=== PATIENT | female | born 1955 | race Caucasian/White ===

== ENCOUNTER 2017-07-23 09:06 | Inpatient (IN) | payer MEDICARE, OTHER ==
[~2017-07-23] VITALS: Ht 160 cm; Wt 89.2 kg
--- NOTE | ~2017-07-23 | DS ---
Unit #: [id number] #: [id number] Patient: TITA REID [id number] [address] [address] [id number] I MR#: [id number] NAME: TITA REID ROOM: 339 Age: 62 Sex: F Admission Date: 07/23/2017 : 1955 Discharge Date: Attending Physician: Delvis Soto M.D. Primary Care Physician: No Primary Care Physician DISCHARGE SUMMARY DISCHARGE DIAGNOSES 1. Acute hypoxic respiratory failure. 2. Chronic obstructive pulmonary disease with exacerbation. 3. Diabetes mellitus type 2, uncontrolled. 4. Hypertension, uncontrolled. 5. Hyperkalemia secondary to noncompliant with her diet and also could be from hyperglycemia. 6. Chronic back pain and leg pain. 7. Hyperlipidemia. 8. Gastroesophageal reflux disease. 9. Depression. CONSULTATION None. PROCEDURES None. LAB DATA Glucose 200, sodium 136, potassium 4.3, creatinine 0.9, WBC 11.4, hemoglobin 12.2, platelets 256. CT angio of chest shows no acute abnormality. Abnormal thickening of the esophagus. ALLERGIES Ibuprofen and shellfish. DISCHARGE MEDICATIONS 1. Albuterol aerosol, 1-2 puffs inhalation q.4-6 p.r.n. shortness of breath. 2. Symbicort 160 mcg, 2 puffs inhalation b.i.d. 3. Spiriva, 1 inhalation daily. 4. Neurontin 400 3x daily. 5. Prednisone tapering dose. 6. Neurontin 400 at bedtime. 7. Cymbalta 60 daily. 8. Remeron 45 daily. 9. Metformin 1000 p.o. b.i.d. 10. Pravachol 40 daily. 11. Inderal LA 10 mg p.o. b.i.d. 12. Lisinopril has been discontinued. 13. Lantus 40 units subcu at bedtime. 14. Oxycodone 10 mg 4x daily p.r.n. pain. Unit #: [id number] #: [id number] Patient: TITA REID 15. Prilosec 20 p.o. b.i.d. HOSPITALIZATION COURSE 62-year-old admitted because of fall and shortness of breath. 1. Acute hypoxic respiratory failure from COPD, currently wheezing better, able to ambulate okay. Patient was on IV Solu-Medrol and doxycycline. Patient will be discharged on albuterol, Spiriva, prednisone tapering dose. She completed her doxycycline course. 2. Hypertension, present on admission secondary to medications, Motrin, responded with fluids. 3. Frequent falls, currently ambulating okay, most likely from her medications, Neurontin and other pain medications which have been decreased in dosage. 4. Hyperkalemia, likely noncompliant with medications. No kidney issues. Patient lisinopril will be on hold. 5. Diabetes mellitus type 2 uncontrolled secondary to Solu-Medrol. Received insulin. Currently she was around 200. Continue with metformin and Lantus. 6. Chronic pain. Continue with narcotics but with a lower dose because of frequent falls. 7. Smoking, advised to quit. Discharge home. Patient will have ambulatory pulse ox checked. If sats less than 89%, will arrange home O2 15/06. Follow with PCP in one week time for esophageal thickening. She is on Prilosec. Discharge time taken is 32 minutes. Dictated by... Marjorie Wong M.D. JOE/manoj TD: 07/27/2017 11:11 JOB #: [id number] DISCHARGE SUMMARY Page 1 of 1 X Marjorie Wong MD DISCHARGE SUMMARY
--- NOTE | ~2017-07-23 | HP ---
Unit #: [id number] #: [id number] Patient: TITA REID [id number] [id number] [facility]. [place], [place] [address] [id number] E MR#: [id number] NAME: TITA REID ROOM: Age: 62 Sex: F Admission Date: 07/23/2017 : 1955 Attending Physician: Darwin Cruz D.O. Primary Care Physician: No Primary Care Physician HISTORY AND PHYSICAL CHIEF COMPLAINT Fell Thursday, hurt right knee. HISTORY OF PRESENT ILLNESS The patient is a 62-year-old female with past medical history of COPD, hypertension, hyperlipidemia, diabetes, chronic pain, GERD, depression, who presented to the emergency department for evaluation of the above. The patient states that she stepped in a "hole" and fell landing on her right leg on July 19, 2017. She has had right knee pain since that time. This morning, she was walking out of the bathroom and fell. She denies any fever. No cough or cold symptoms. She has been generally weak. She denies lightheadedness. No chest pain. She has had an intermittently productive cough. She denies any fever. No diarrhea or constipation. No vomiting. No urinary symptoms. In the emergency department, initial pulse was 84, blood pressure 129/67, oxygen saturation was 95% on room air. Blood pressure dropped to 86/62 during her course of evaluation in the emergency department. Imaging studies are negative including a chest x-ray. She did have an arterial blood gas that showed a pH of 7.293, pCO2 of 58.3, pO2 of 50 on room air. She was given Solu-Medrol 125 mg as well as 4 mg of morphine, 4 mg of Zofran, and a 1 L normal saline bolus. Of note, morphine was given at 10:35. Low blood pressure in the 80s was noted around 1:30. PAST MEDICAL HISTORY 1. Admission to [facility], March 19, 2016, for altered mental status, attributed to opiates and Neurontin. 2. COPD, not on home oxygen. 3. Diabetes. 4. Chronic back and leg pain, not in pain management. 5. Hypertension. 6. Hyperlipidemia. 7. GERD. 8. Depression. PAST SURGICAL HISTORY 1. Back surgery. 2. Appendectomy. 3. Cholecystectomy. 4. Total abdominal hysterectomy. 5. Right rotator cuff surgery. 6. EGD. Unit #: [id number] #: [id number] Patient: TITA REID SOCIAL HISTORY The patient lives with her . She smokes a pack of cigarettes daily. There is no alcohol or illicit drug use. She walks with a cane. FAMILY HISTORY Notable for her mother having diabetes. ALLERGIES Shellfish and ibuprofen. HOME MEDICATIONS 1. Spiriva inhaled daily. 2. Oxycodone 10/325 four times daily p.r.n. 3. Pravachol 40 mg at bedtime. 4. Neurontin 800 mg t.i.d. and 400 mg at bedtime. 5. Symbicort 160/4.5 two puffs inhaled twice daily. 6. Ventolin one to two puffs q.4-6 hours p.r.n. 7. Glucophage 1000 mg twice daily. 8. Inderal 10 mg twice daily. 9. Lantus 40 units at bedtime. 10. Duloxetine 60 mg daily. 11. Zestril 10 mg daily. 12. Remeron 45 mg at bedtime. 13. Prilosec 20 mg twice daily. REVIEW OF SYSTEMS A complete review of systems is negative except as indicated in the HPI. The patient denies any change in her medications. She does not routinely check blood sugars at home. DIAGNOSTIC STUDIES LABORATORY: Lactic acid is 2. Arterial blood gas shows pH of 7.293, pCO2 of 58.3, pO2 of 50 on room air. Urinalysis is negative. Basic metabolic panel notable for potassium of 5.2, chloride 96, glucose 186. Complete blood count notable for white blood cell count of 11.6. Troponin is less than 0.05. IMAGING: Chest x-ray is negative. Right tibia/fibula, femur, and knee x-rays show no fracture. CARDIOVASCULAR: EKG shows normal sinus rhythm with rate of 84 beats per minute. PHYSICAL EXAMINATION VITAL SIGNS: Temperature is 97.9, pulse 84, respirations 16, blood pressure 129/67. Blood pressure dropped as low as 86/62. Most recent blood pressure is 118/70. Oxygen saturation 95% on room air. GENERAL: The patient is a female who is awake and alert in no acute distress. HEENT: The head is atraumatic. Mucous membranes are moist. NECK: Supple. Trachea is midline. CARDIOVASCULAR: Regular rate and rhythm. LUNGS: Demonstrate inspiratory and expiratory wheezes. Breathing is not labored with conversation. ABDOMEN: Soft, nontender with bowel sounds present in all four quadrants. EXTREMITIES: The right lower extremity is tender to palpation in the knee area. There is no pedal edema. Unit #: [id number] #: [id number] Patient: TITA REID NEUROLOGIC: The patient is awake and alert. She follows commands. PSYCHIATRIC: Mood and affect are normal. The patient is cooperative. SKIN: Skin of examined areas is warm and dry. She does have a contusion on the right knee. ASSESSMENT The patient is a 62-year-old female with: 1. Acute respiratory failure, hypoxic. 2. Chronic obstructive pulmonary disease exacerbation: The patient received Solu-Medrol in the emergency department. 3. Hypotension that has responded to fluids, possibly secondary to morphine. 4. Frequent falls. 5. Hyperkalemia with potassium of 5.2. 6. Diabetes. 7. Chronic pain, maintained on narcotics. 8. Gastroesophageal reflux disease. 9. Depression. 10. Hyperlipidemia. 11. Tobacco abuse. PLAN 1. Admit to intermediate level. 2. Normal saline at 75 mL/hr. 3. Healthy heart consistent carb diet if passes bedside swallow. 4. Bedrest. 5. Fall precautions. 6. PT, OT to evaluate and treat. 7. Supplemental oxygen. 8. DuoNeb q.4 hours while awake and q.2 hours p.r.n. 9. Solu-Medrol 80 mg IV q.12 hours. 10. Mucinex 600 mg p.o. b.i.d. 11. Doxycycline 100 mg p.o. b.i.d. for possible acute bronchitis. 12. CT of the chest PE protocol. 13. Blood cultures x2. 14. Monitor blood pressure closely. 15. Hemoglobin A1c. 16. Low-dose sliding scale insulin with Accu-Cheks. 17. Serial cardiac enzymes. 18. Urine tox screen. 19. Repeat BMP later this evening to follow up hyperkalemia. 20. Repeat labs in the morning. 21. SCDs for DVT prophylaxis. 22. Additional workup and consultants based on above. Dictated by Brook Choudhary M.D. YEIMI/stevan TD: 07/23/2017 16:40 JOB #: [id number] Unit #: [id number] #: [id number] Patient: TITA REID HISTORY AND PHYSICAL Page 1 of 1 X Brook Choudhary MD X HISTORY AND PHYSICAL
--- NOTE | ~2017-07-23 | CR72 ---
[facility] A Service of [facility] RADIOLOGY TEXT RESULTS PATIENT: TITA REID LOCATION: [facility] 339-01 : 53 UNIT #: [id number] AGE: [address]: Delvis Soto MD SEX: F ORDER DR: [id number] [facility] [address] [facility] [place], [place] [address] [id number] E MR#: [id number] Acc #: [id number] NAME: TITA REID : 1955 SEX: F STUDY DATE/TIME: 07/23/2017 13:21 UNIT: [facility] ROOM: STUDY DESCRIPTION: CR Chest Single View Portable Attending Physician: Darwin Cruz D.O. Ordering Physician: Darwin Cruz D.O. Primary Care Physician: No Primary Care Physician MEDICAL IMAGING REPORT This report is preliminary unless electronic signature is present EXAM Chest x-ray, single-view, portable. HISTORY Low blood pressure today. History of shortness of breath, COPD and smoking. COMMENT Single frontal portable view of the chest timed 13:21, 07/23/2017, reviewed. COMPARISON Comparison is from 03/19/2016. FINDINGS There is normal cardiac silhouette size. There is calcified granuloma left lung laterally midportion. The lungs are otherwise clear. There is no congestive failure, pleural effusion or pneumothorax. IMPRESSION No active disease. Dictated by... Celina Dial M.D. THIS IS AN ELECTRONICALLY VERIFIED REPORT Celina Dial M.D. at 07/24/2017 8:23 AM DEVIN/radha TD: 07/23/2017 16:17 JOB #: [id number] [facility] A Service [facility] RADIOLOGY TEXT RESULTS PATIENT: TITA REID LOCATION: [facility] 339-01 : [birth year] UNIT #: [id number] AGE: [address]: Delvis Soto MD SEX: F ORDER DR: MEDICAL IMAGING REPORT Page 1 of 1 COPY
--- NOTE | ~2017-07-23 | CR173 ---
[facility] A Service of [facility] & [facility] RADIOLOGY TEXT RESULTS PATIENT: TITA REID LOCATION: [facility] 339-01 : 53 UNIT #: [id number] AGE: [address]: Delvis Soto MD SEX: F ORDER DR: [id number] [facility] [address] [place], [place] [address] [id number] E MR#: [id number] Acc #: [id number] NAME: TTIA REID : 1955 SEX: F STUDY DATE/TIME: 07/23/2017 10:27 UNIT: [facility] ROOM: STUDY DESCRIPTION: CR Knee 3 Views Rt Attending Physician: Darwin Cruz D.O. Ordering Physician: Darwin Cruz D.O. Primary Care Physician: Primary Care Physician No MEDICAL IMAGING REPORT This report is preliminary unless electronic signature is present EXAM Right knee series, 09/18/2017 HISTORY Trauma, fell twice. No previous injuries. Pain in right leg 1 week duration. FINDINGS AP, lateral and sunrise views of the right knee are presented. Diminished bony mineralization. No traumatic fracture or malalignment. Moderate to marked narrowing of all 3 joint space compartments most pronounced patellofemoral joint space compartment. Marginal osteophyte formations most pronounced at the patellofemoral joint space compartment. Small suprapatellar joint effusion. Chronic soft tissue calcification lateral aspect distal thigh. No acute traumatic appearing soft tissue abnormality. Dictated by... Lee Saini M.D. THIS IS AN ELECTRONICALLY VERIFIED REPORT Lee Saini M.D. at 07/24/2017 6:19 PM Rajni TD: 07/23/2017 13:18 JOB #: [id number] MEDICAL IMAGING REPORT Page 1 of 1 COPY
--- NOTE | ~2017-07-23 | CR107 ---
[facility] A Service of [facility] / [facility] RADIOLOGY TEXT RESULTS PATIENT: TITA REID LOCATION: [facility] : 53 UNIT #: [id number] AGE: [address]: Darwin Cruz DO SEX: F ORDER DR: [id number] [facility] [address] [place], [place] [address] [id number] E MR#: [id number] Acc #: [id number] NAME: TITA REID : 1955 SEX: F STUDY DATE/TIME: 07/23/2017 10:23 UNIT: [facility] ROOM: STUDY DESCRIPTION: CR Femur 2 Views Rt Attending Physician: Darwin Cruz D.O. Ordering Physician: Darwin Cruz D.O. Primary Care Physician: Primary Care Physician No MEDICAL IMAGING REPORT This report is preliminary unless electronic signature is present EXAM Right femur 2 views, 07/23/2017 10:23 hours COMPARISON 01/02/2013 HISTORY 62-year-old woman who has fallen twice in the past week. Right leg pain. FINDINGS AP and lateral views demonstrate no fracture of the femur. There is mild degenerative change at the hip and moderate degenerative change at the knee. There is a subtle area of periosteal thickening in the proximal tibial metaphysis, incompletely evaluated on this exam. IMPRESSION 1. No femur fracture is seen. Mild degenerative change at the right hip. Moderate to severe degenerative change at the knee. 2. There is question raised of periosteal thickening at the proximal tibial metaphysis incompletely evaluated on these films. Patient does have knee and tibia and fibula films pending today. Dictated by... Doreen Sagastume M.D. THIS IS AN ELECTRONICALLY VERIFIED REPORT Doreen Sagastume M.D. at 07/23/2017 12:52 PM Kim TD: 07/23/2017 11:50 JOB #: [id number] MEDICAL IMAGING REPORT [facility] A Service of [facility] RADIOLOGY TEXT RESULTS PATIENT: TITA REID [id number] 53 UNIT #: [id number] AGE: [address]: Darwin Cruz DO SEX: F ORDER DR: Page 1 of 1 COPY
--- NOTE | ~2017-07-23 | CT16 ---
[facility] A Service of [facility] RADIOLOGY TEXT RESULTS PATIENT: TITA REID LOCATION: [facility] 339-01 : 53 UNIT #: [id number] AGE: [address]: Delvis Soto MD SEX: F ORDER DR: [id number] [facility] [address] [facility] [place], [place] [address] [id number] I MR#: [id number] Acc #: [id number] NAME: TITA REID : 1955 SEX: F STUDY DATE/TIME: 07/23/2017 17:51 UNIT: [facility] PCU ROOM: [facility] STUDY DESCRIPTION: CT Angio Chest for PE Attending Physician: Brook Choudhary M.D. Ordering Physician: Brook Choudhary M.D. Primary Care Physician: Primary Care Physician No MEDICAL IMAGING REPORT This report is preliminary unless electronic signature is present EXAM CT angiography of the chest with IV contrast, PE protocol COMPARISON CT chest without IV contrast dated March 03, 2014 and AP chest dated July 23, 2017. INDICATION 62-year-old female with dyspnea today. Nonproductive cough and chest congestion for years. This CT exam was performed with one or more of the following radiation dose reduction techniques: automatic exposure control, adjustment of mA and/or kV according to patient size, and iterative reconstruction. FINDINGS Axial CT imaging of the chest was performed after IV administration of 100 mL Isovue-370. Coronal MIPs and sagittal reformats were constructed. Diffuse spondylosis of the thoracic spine with degenerative vacuum disc phenomenon seen at multiple levels. No acute fractures or suspicious osseous lesions. No adenopathy. Calcified granuloma in the left upper lobe as well as calcified AP window lymph nodes. Normal caliber of the thoracic aorta. There is cardiac pulsation artifact seen at the ascending aorta and main pulmonary artery. Top normal heart size. Multivessel left-sided coronary artery calcifications involving the left anterior descending, left main and circumflex coronary arteries. Airways are widely patent. No pneumothorax, pleural effusion or acute airspace disease. There is suspected internal debris within the esophagus but mucosal lesion cannot entirely be excluded. Streak artifact from contrast bolus in the superior vena cava limits evaluation of the right main pulmonary artery and its branches. No evidence of pulmonary embolus is seen on this exam. [facility]. [facility] A Service of [facility] / [facility] RADIOLOGY TEXT RESULTS PATIENT: TITA REID LOCATION: [facility] 339-01 : 53 UNIT #: [id number] AGE: [address]: Delvis Soto MD SEX: F ORDER DR: Prior cholecystectomy. Mild hepatomegaly. Apparent multifocal scarring of the kidneys versus persistent lobulation. IMPRESSION 1. No acute abnormality within the chest or imaged upper abdomen. 2. There may abnormal thickening of the esophagus versus asymmetric layering internal debris. Clinical correlation is recommended. One could consider direct visualization with endoscopy as an outpatient or outpatient esophagram. 3. Three-vessel coronary artery calcification including left main, anterior descending and circumflex coronary arteries, grossly stable from comparison of 2014. 4. No evidence of pulmonary embolus. 5. Hepatomegaly. Prior cholecystectomy. 6. Multifocal scarring versus persistent lobulation of the kidneys. Dictated by... John Fletcher M.D. THIS IS AN ELECTRONICALLY VERIFIED REPORT John Fletcher M.D. at 07/29/2017 10:06 AM [place] TD: 07/24/2017 01:37 JOB #: [id number] MEDICAL IMAGING REPORT Page 1 of 1 COPY
--- NOTE | ~2017-07-23 | EKG ---
PATIENT: TITA REID UNIT #: [id number] Ventricular Rate: 84 BPM Atrial Rate: 84 BPM P-R Interval: 198 ms QRS Duration: 88 ms Q-T Interval: 366 ms QTC Calculation(Bezet): 432 ms P [place]: 65 degrees Calculated R [place]: 45 degrees Calculated T [place]: 56 degrees Diagnosis Line: Normal sinus rhythm Diagnosis Line: Low voltage QRS Diagnosis Line: Borderline ECG Diagnosis Line: When compared with ECG of 19-MAR-2016 13:25, Diagnosis Line: No significant change was found Diagnosis Line: Confirmed by KAVEH BOSE MD ([id number]) on Diagnosis Line: 07/24/2017 4:42:03 PM INTERPRETING MD: DARRIAN
--- NOTE | ~2017-07-23 | CR253 ---
[facility] A Service of [facility] & [facility] RADIOLOGY TEXT RESULTS PATIENT: TITA REID LOCATION: [facility] 339-01 : 53 UNIT #: [id number] AGE: [address]: Delvis Soto MD SEX: F ORDER DR: [id number] [facility] [address] [place], [place] [address] [id number] E MR#: [id number] Acc #: [id number] NAME: TITA REID : 1955 SEX: F STUDY DATE/TIME: 07/23/2017 10:26 UNIT: [facility] ROOM: STUDY DESCRIPTION: CR Tibia and Fibula 2 Views Rt Attending Physician: Darwin Cruz D.O. Ordering Physician: Darwin Cruz D.O. Primary Care Physician: Primary Care Physician No MEDICAL IMAGING REPORT This report is preliminary unless electronic signature is present EXAM Tibia-fibula series 07/23/2017 HISTORY Trauma. Fell twice. Pain in right leg. No previous injuries. One week duration. FINDINGS AP and lateral radiographs of the right tibia and fibula are presented. Diminished bony mineralization. No traumatic fracture or malalignment is seen. Generalized narrowing of knee joint spaces. Chronic-appearing soft tissue calcification lateral aspect distal thigh. Mild degenerative change suggested in the ankle mortise joint. On the lateral view of the knee, there may be a very small effusion in the suprapatellar recess. There is no soft tissue defect, subcutaneous air or radiodense foreign body. Dictated by... Lee Saini M.D. THIS IS AN ELECTRONICALLY VERIFIED REPORT Lee Saini M.D. at 07/24/2017 6:19 PM KENYON/edson TD: 07/23/2017 12:47 JOB #: [id number] MEDICAL IMAGING REPORT Page 1 of 1 COPY
--- NOTE | ~2017-07-23 | HP ---
Unit #: [id number] #: [id number] Patient: TITA REID [id number] [address] [place], [place] [address] [id number] E MR#: [id number] NAME: TITA REID ROOM: Age: 62 Sex: F Admission Date: 07/23/2017 : 1955 Attending Physician: Darwin Cruz D.O. Primary Care Physician: No Primary Care Physician HISTORY AND PHYSICAL ADDENDUM REVIEW OF SYSTEMS Additional information under review of systems: The patient had an MRI/MRA of the head and neck within the past month ordered by her primary care physician as part of evaluation of chronic headaches. It was normal per the patient. I do not see any imaging studies in [employer] or on the [facility] system. Family is not sure where it was done. PLAN Additional item under plan: Will decrease the patient's Neurontin which could be contributing to falls. She is on 800 mg t.i.d. and 400 mg q.h.s. I have decreased the dosage. Dictated by Lulu Cooper/jaime TD: 07/23/2017 17:32 JOB #: [id number] HISTORY AND PHYSICAL Page 1 of 1 X Brook Choudhary MD HISTORY AND PHYSICAL
[~2017-07-23 09:06] MED LIST: ADVAIR 250-501 EAC1 IH; ADVAIR 2501 DISK W/D PO; ALBUTEROL17 GM INH; ANTIVERT PO; ASPIRIN PO; BACLOFEN10 MG PO; CELEXA PO; CYMBALTA30 MG PO; DARVOCET-N 1001 TAB PO; DIAZEPAM PO; DULOXETINE HCL60 MG PO; ECOTRIN81 M1 PO; ENDOCET 7.5-3251 TAB PO; FAMVIR500 MG PO; FLEXERIL10 MG PO; GLUCOPHAGE XR500 MG PO; GLUCOTROL PO; HYDROCHLOROTH12.5 M1 PO; LANTUS SOLOSTAR3 ML SQ; LANTUS100 U/ML SUBQ; LEVAQUIN PO; LEVAQUIN750 M1 PO; LISINOPRIL PO; LISINOPRIL10 MG PO; LYRICA PO; MACROBID100 MG DOB; MEDROL4 MG/DOSE- PO; METFORMIN PO; MIRALAX255 GM PO; MIRTAZAPINE45 M1 PO; NAPROSYN375 MG PO; NEURONTIN PO; NEURONTIN800 MG PO; NORCO 10/325 TA1 TAB PO; NORVASC2.5 MG PO; OMEPRAZOLE20 M1 PO; OXYCODON HCL-AP1 TA2 PO; OXYCODONE-ACET1 EACH PO; PERCOCET10 PO; PHENERGAN PO; PHENERGAN25 M1 PO; PRILOSEC PO; PROPRANOLOL HCL20 MG PO; PYRIDIUM100 MG PO; REMERON15 MG PO; TYLENOL #3 PO; TYLOX 5/500 CAP1 CAP PO; VENTOLIN HFA INH; ZOFRAN ODT4 MG PO; ZOLOFT PO; [UNRECOGNIZED DRUG - OTHER] PO; [UNRECOGNIZED DRUG - OTHER] PO
[2017-07-23 11:02] LABS: POC - CKMB 1.5 ng/mL (0.0-7.9); POC - TROPONIN <0.05 ng/mL (<=0.05)
[2017-07-23 11:05] LABS: BASOPHIL# 0.1 X10e3 (0-0.3); BASOPHIL% 0.9 % (0-2.5); EOSINOPHIL# 0.2 X10e3 (0-0.7); EOSINOPHIL% 2.1 % (0.0-7.0); HEMATOCRIT 40.4 % (35.0-45.0); LYMPHOCYTE# 2.5 X10e3 (1.0-3.5); MEAN CELL VOLUME 92.2 FL (83-96); MEAN CORPUSCULAR HEMOGLOBIN 29.7 PG (28-34); MEAN CORPUSCULAR HGB CONC 32.2 g/dL (30-36); MEAN PLATELET VOLUME 8.2 FL (6.5-11.5); MONOCYTE# 0.7 X10e3 (0-1.0); PLATELET COUNT 284 X10e3 (140-420); RED BLOOD COUNT 4.38 X10e (3.90-5.30); RED CELL DISTRIBUTION WIDTH 14.4 % (11.0-15.5); WHITE BLOOD COUNT 11.6 X10e3 (4.0-10.5)
[2017-07-23 11:06] LABS: DIFF IND NO
[2017-07-23 11:28] LABS: GLOM FILT RATE Estimated 59.9 mL/min (>60); POTASSIUM 5.2 mmol/L (3.5-5.1)
[2017-07-23 12:04] LABS: URINE SOURCE CLEAN CATCH
[2017-07-23 12:08] LABS: URINE APPEARANCE CLEAR; URINE BILIRUBIN NEG (NEG); URINE BLOOD NEG (NEG); URINE COLOR YELLOW; URINE GLUCOSE NEG (NEG); URINE KETONE NEG (NEG); URINE LEUKOCYTE ESTERASE NEG (NEG); URINE NITRATE NEG (NEG); URINE PROTEIN NEG (NEG); URINE SPECIFIC GRAVITY 1.014 (1.003-1.035); URINE UROBILINOGEN 0.2 MG/DL (NEG)
[2017-07-23 12:11] LABS: CULTURE INDICATED? NO
[2017-07-23 14:14] LABS: ARTERIAL BLD GAS O2 SATURATION 79.9 % (90.0-100.0); ARTERIAL BLOOD GAS CARBOXY HB 5.3 %sat (0.0-9.0); ARTERIAL BLOOD GAS HCO3 28.2 mmol/L; ARTERIAL BLOOD GAS MET HB 1.1 %sat (0.0-2.0); ARTERIAL BLOOD GAS pH 7.293 (7.350-7.450)
[2017-07-23 14:15] LABS: ARTERIAL BLOOD GAS ALLEN TEST NORMAL; ARTERIAL BLOOD GAS ART SITE RIGHT RADIAL; ARTERIAL BLOOD GAS PCO2 58.3 mmHg (35.0-45.0); ARTERIAL DRAW? YES
[2017-07-23] MEDS ORDERED: PATIENT'S PHARMACY (15:19)
[2017-07-23] MEDS ORDERED: SPIRIVA18 MCG INH (15:19)
[2017-07-23] MEDS ORDERED: OXYCODONE-ACET1 EAC1 PO (15:20)
[2017-07-23] MEDS ORDERED: NEURONTIN800 MG PO (15:20)
[2017-07-23] MEDS ORDERED: GABAPENTIN400 MG PO (15:20)
[2017-07-23] MEDS ORDERED: PRAVACHOL PO (15:20)
[2017-07-23] MEDS ORDERED: ALBUTEROL17 GM INH (15:21)
[2017-07-23] MEDS ORDERED: INDERAL LA PO (15:21)
[2017-07-23] MEDS ORDERED: METFORMIN PO (15:21)
[2017-07-23] MEDS ORDERED: SYMBICORT INH (15:21)
[2017-07-23] MEDS ORDERED: PRILOSEC PO (15:22)
[2017-07-23] MEDS ORDERED: DULOXETINE HCL60 M1 PO (15:22)
[2017-07-23] MEDS ORDERED: LISINOPRIL PO (15:22)
[2017-07-23] MEDS ORDERED: LANTUS SOL100 UNIT/1 SUBQ (15:22)
[2017-07-23] MEDS ORDERED: REMERON PO (15:22)
[2017-07-23 17:33] LABS: AMPHETAMINE NEG (NEG); BARBITURATES NEG (NEG); BENZODIAZEPINES NEG (NEG); COCAINE NEG (NEG); MARIJUANA NEG (NEG); OPIATES POS (NEG); TRICYCLIC ANTIDEPRESSANTS NEG (NEG); U METHADONE NEG (NEG)
[2017-07-23 19:05] LABS: CK TOTAL 44 IU/L (26-140)
[2017-07-23 19:10] LABS: CALCIUM SERUM 8.5 mg/dL (8.4-10.2); GLOM FILT RATE Estimated 59.9 mL/min (>60); POTASSIUM 5.2 mmol/L (3.5-5.1)
[2017-07-23 23:29] LABS: CK TOTAL 49 IU/L (26-140)
[2017-07-24 05:45] LABS: HEMATOCRIT 37.2 % (35.0-45.0); HEMOGLOBIN 11.9 gm/dL (12.0-16.0); MEAN CORPUSCULAR HEMOGLOBIN 29.5 PG (28-34); MEAN PLATELET VOLUME 8.3 FL (6.5-11.5); RED BLOOD COUNT 4.04 X10e (3.90-5.30); RED CELL DISTRIBUTION WIDTH 14.6 % (11.0-15.5); WHITE BLOOD COUNT 8.6 X10e3 (4.0-10.5)
[2017-07-24 06:30] LABS: ALBUMIN SERUM 3.2 g/dL (3.5-5.0); BILIRUBIN,TOTAL 0.1 mg/dL (0.2-2.0); CALCIUM SERUM 8.5 mg/dL (8.4-10.2); GLOM FILT RATE Estimated 59.9 mL/min (>60); PROTEIN TOTAL SERUM 6.7 g/dL (6.0-8.3)
[2017-07-25 12:40] LABS: BUN/CREATININE RATIO 17.77; CALCIUM SERUM 8.7 mg/dL (8.4-10.2); CREATININE SERUM 0.9 mg/dL (0.6-1.4); GLOM FILT RATE Estimated 68.1 mL/min (>60)
[2017-07-25 12:44] LABS: POTASSIUM 5.9 mmol/L (3.5-5.1)
[2017-07-26 07:17] LABS: CALCIUM SERUM 9.1 mg/dL (8.4-10.2); GLOM FILT RATE Estimated 59.9 mL/min (>60)
[2017-07-26 07:39] LABS: POTASSIUM 5.5 mmol/L (3.5-5.1)
[2017-07-26 13:48] LABS: CALCIUM SERUM 9.6 mg/dL (8.4-10.2); GLOM FILT RATE Estimated 59.9 mL/min (>60); POTASSIUM 4.2 mmol/L (3.5-5.1)
[2017-07-27 06:40] LABS: HEMATOCRIT 38.3 % (35.0-45.0); HEMOGLOBIN 12.2 gm/dL (12.0-16.0); MEAN CELL VOLUME 91.6 FL (83-96); MEAN CORPUSCULAR HEMOGLOBIN 29.3 PG (28-34); MEAN CORPUSCULAR HGB CONC 31.9 g/dL (30-36); MEAN PLATELET VOLUME 8.1 FL (6.5-11.5); RED BLOOD COUNT 4.18 X10e (3.90-5.30); RED CELL DISTRIBUTION WIDTH 15.2 % (11.0-15.5); WHITE BLOOD COUNT 11.4 X10e3 (4.0-10.5)
[2017-07-27 07:14] LABS: BUN/CREATININE RATIO 23.33; CALCIUM SERUM 9.2 mg/dL (8.4-10.2); CREATININE SERUM 0.9 mg/dL (0.6-1.4); GLOM FILT RATE Estimated 68.1 mL/min (>60); POTASSIUM 4.3 mmol/L (3.5-5.1)
[2017-07-27] MEDS ORDERED: PREDNISONE (11:11)
== END 2017-07-27 12:16 | disposition home or self-care (01) | DRG 189 ==
LOC: CED 09:06 → CEDOF 16:05 → SEDOF 16:42 → CED 16:42 → CEDOF 16:43 → C3A PCU 16:43 → CED 16:43 → C3A PCU 19:31 → CEDOF 19:31 → C3A PCU 07-24 08:05
PROVIDERS: Emergency Medicine; Family Medicine; Internal Medicine
PROC: B32TYZZ Computerized Tomography (CT Scan) of Left Pulmonary Artery using Other Contrast (ICD-10-PCS; principal; 2017-07-23)
PROC: B32SYZZ Computerized Tomography (CT Scan) of Right Pulmonary Artery using Other Contrast (ICD-10-PCS; 2017-07-23)
DX: J96.01 Acute respiratory failure with hypoxia (principal); E11.65 Type 2 diabetes mellitus with hyperglycemia; I95.2 Hypotension due to drugs; J44.1 Chronic obstructive pulmonary disease with (acute) exacerbation; I10 Essential (primary) hypertension; Z79.4 Long term (current) use of insulin; E87.5 Hyperkalemia; G89.29 Other chronic pain; M54.9 Dorsalgia, unspecified; M25.561 Pain in right knee; E78.5 Hyperlipidemia, unspecified; K21.9 Gastro-esophageal reflux disease without esophagitis; F32.9 Major depressive disorder, single episode, unspecified; R29.6 Repeated falls; Z91.14 Patient's other noncompliance with medication regimen; F17.200 Nicotine dependence, unspecified, uncomplicated; Z71.6 Tobacco abuse counseling; W18.30XA Fall on same level, unspecified, initial encounter; Y92.002 Bathroom of unspecified non-institutional (private) residence as the place of occurrence of the external cause; T40.2X5A Adverse effect of other opioids, initial encounter; Z90.49 Acquired absence of other specified parts of digestive tract; Z90.710 Acquired absence of both cervix and uterus; Z83.3 Family history of diabetes mellitus
CPT/HCPCS: 36415; 36600; 71010; 71275; 73552; 73562; 73590; 80048; 80053; 80307; 81003; 82550; 82553; 82803; 82947; 83036; 83605; 84132; 84484; 85025; 85027; 87040; 93005; 94640; 94664; 94760; 96361; 96374; 96375; 97161; 97165; 99285; G8978-GP; G8979-GP; G8980-GP; G8987-GO; G8988-GO; G8989-GO; J1815; J1940; J2270; J2405; J2920; J2930; Q9967